=== PATIENT | female | born 1980 | race Hispanic/Latino ===

== ENCOUNTER 2020-06-05 10:38 | Emergency (ER) | payer MEDICAID, OTHER ==
[~2020-06-05 10:38] MED LIST: METH250T3 PO
[2020-06-05] MEDS ORDERED: ONDANSETRON ODT 4 MG TAB PO ONE (10:39)
[2020-06-05 12:00] LABS: RAPID GROUP A STREP NEGATIVE (NEGATIVE)
[2020-06-05 12:38] LABS: BILIRUBIN,URINE SMALL (NEGATIVE); GLUCOSE, URINE (UA) NEGATIVE (NEGATIVE); KETONES,URINE NEGATIVE (NEGATIVE); LEUKOCYTE ESTERASE ,URINE NEGATIVE (NEGATIVE); NITRATE,URINE NEGATIVE (NEGATIVE); OCCULT BLOOD,URINE LARGE (NEGATIVE); PH,URINE 6.5 (5.0-8.0); PROTEIN,URINE 100 mg/dL (NEGATIVE); UROBILINOGEN,URINE 0.2 mg/dL (0.2-1.0)
[2020-06-05 12:39] LABS: APPEARANCE,URINE TURBID (CLEAR); COLOR,URINE RED (YELLOW)
[2020-06-05 12:41] LABS: HCG,QUAL RESULT NEGATIVE (NEGATIVE)
[2020-06-05] MEDS ORDERED: ACETAMINOPHEN-CODEINE 300/30MG TAB ONE (12:42)
[2020-06-05 12:52] LABS: BASOPHILS % (AUTO) 0.1 % (0.0-5.0); EOSINOPHILS % (AUTO) 0.5 % (0.0-8.0); HEMATOCRIT 37.2 % (36-48); LYMPHOCYTES % (AUTO) 10.1 % (21.0-51.0); MEAN CORPUSCULAR HEMOGLOBIN 28.6 pg (27.0-33.0); MEAN CORPUSCULAR HGB CONC 33.6 g/dL (32.0-36.0); MEAN CORPUSCULAR VOLUME 85.1 fL (79-99); NEUTROPHILS % (AUTO) 82.9 % (40.0-77.0); PLATELET COUNT (AUTO) 181 K/uL (130-400); RED BLOOD CELL COUNT(AUTO) 4.37 MIL/uL (4.00-5.50); RED CELL DISTRIBUTION WIDTH 13.3 % (11.0-15.5); WHITE BLOOD COUNT (AUTO) 14.3 K/uL (4.8-10.8)
[2020-06-05 12:53] LABS: RBC,URINE TNTC /HPF (0-1)
[2020-06-05 12:56] LABS: BACTERIA,URINE Rare /HPF (None Seen); SQUAMOUS EPITHELIAL CELL,UR Rare /HPF (0-2)
[2020-06-05 13:04] LABS: ALBUMIN 3.3 g/dL (3.5-5.0); BILIRUBIN,TOTAL 0.8 mg/dL (0.2-1.0); CREATININE 0.9 mg/dL (0.5-1.5); TOTAL PROTEIN, SERUM 6.9 g/dL (6.0-8.3)
[2020-06-05] MEDS ORDERED: POTASSIUM CHLORIDE 10% ELIXIR 20 MEQ/15 ML UDCUP ONE (13:23)
== END 2020-06-05 14:32 | disposition home or self-care (01) ==
LOC: EDH 10:38
DX: B34.9 Viral infection, unspecified (principal); E87.6 Hypokalemia; E86.0 Dehydration; I10 Essential (primary) hypertension; Z20.828 Contact with and (suspected) exposure to other viral communicable diseases
CPT/HCPCS: 36415; 80053; 81001; 81025; 83690; 84702; 85025; 87088; 87426; 87804 ×2; 87880; 99284; U0003

== ENCOUNTER 2025-04-27 07:59 | Emergency (ER) | payer BC, OTHER ==
[~2025-04-27] VITALS: Ht 149.9 cm; Wt 106.6 kg
--- NOTE | 2025-04-27 08:13 | ERN ---
General Chief Complaint: Flu Symptoms Stated Complaint: COUGH Time Seen by MD: 08:03 Source: patient History of Present Illness Initial Comments Patient is a 45-year-old female coming in complaining of a cough. Per patient she has had earaches nasal congestion cough for three days. No shortness of breath. Allergies: Coded Allergies: No Known Drug Allergies (Unverified Allergy, Unknown, 11/05/16) Home Meds Reported Medications Methyldopa (Methyldopa) 250 Mg Tablet, 250 MG PO BID, TAB 11/05/16 Past Medical History Past Medical History: Diabetes-Type II, Hypertension Past Surgical History: None ROS Dictation CONSTITUTIONAL: No chills, no fever, no weakness, no diaphoresis, no malaise. HEAD/FACE: No signs of trauma. EENT: No eye pain, no blurred vision, no tearing, no double vision, ear pain, no ear discharge, no nose pain, nasal congestion, no throat pain, no throat swelling, no mouth pain. RESPIRATORY: cough, no orthopnea, no SOB, no stridor, no wheezing. CARDIOVASCULAR: No chest pain, no edema, no palpitations, no syncope. GASTROINTESTINAL/ABDOMINAL: No abdominal pain, no constipation, no diarrhea, no nausea, no vomiting. GENITOURINARY: No abnormal discharge, no dysuria, no frequent urination, no hematuria. No complaints of pain in the genitals. MUSCULOSKELETAL: No back pain, no gout, no joint pain, no joint swelling, no muscle pain, no muscle stiffness, no neck pain. INTEGUMENTARY: No change in color, no change in hair/nails, no dryness, no lesion, no lumps, no rash. NEUROLOGICAL/PSYCH: No anxiety, not depressed, no emotional problem, no headache, no numbness, no pre-existing deficit, no history of seizures, no tremors, no weakness. HEMATOLOGIC/LYMPHATIC: Not anemic, no history of blood clots, no apparent bleeding, no bruising, glands not swollen. All Systems Negative, Except as Noted. Physical Exam Physical Exam Dictation VITAL SIGNS: Reviewed. GENERAL APPEARANCE: Alert, oriented x3, no acute distress, obese. HEAD AND FACE: Non-traumatic. EYES: PERRL, pink conjunctivas, eyelid no trauma, anterior chamber clear. EARS: Pinnas intact and no signs of trauma or erythema. Ear canals bilateral cerumen impaction. TMs no erythema. NOSE: No discharge, no bleeding. OROPHARYNX: Mouth normal, teeth no caries, tongue pink. Pharynx clear, no erythema. Tonsils no exudates, no abscesses noted. Mucous membrane moist. NECK: Supple, non-tender, no thyromegaly, no masses, no JVD, no bruits. BREAST: Deferred. CHEST: No tenderness, no crepitus, no paradoxical movement, no retractions. LUNGS: Clear, well-ventilated, symmetric, no rales, no wheezing, no rhonchi, no stridor, good breath sounds bilaterally. HEART: Regular rate, regular rhythm, no murmur, no gallops. VASCULAR: No peripheral edema. ABDOMEN: Soft, positive bowel sounds, nondistended, no guarding, nontender, no rebound, no masses no hepatomegaly, no splenomegaly, no Luna's sign, no hernias. RECTAL: Deferred. GENITAL: Deferred. NEUROLOGICAL: Normal speech, gross motor function intact, gross sensory function intact. MUSCULOSKELETAL: Neck nontender, full range of motion, back nontender, full range of motion. EXTREMITIES: Nontender, full range of motion. SKIN: Color pink, dry, no turgor, no rash, no lacerations, no abrasions, no contusions. LYMPHATICS: Deferred. Results Laboratory and Microbiology Lab and Micro Result Laboratory Tests Test 04/27/25 08:00 04/27/25 08:15 Influenza Type A Antigen Negative For Type A Influenza Type B Antigen Negative For Type B SARS-CoV-2 Antigen (Rapid) PRESUMPTIVE NEGATIVE Group A Streptococcus Rapid negative (NEGATIVE) Urine HCG, Qualitative NEGATIVE (NEGATIVE) Labs Reviewed?: Yes MDM MDM: Differential diagnosis: URI, sinusitis, COVID, flu Rationale: Tests considered and ordered secondary to shared decision making include: Previous outside records reviewed: Old ER visits. Risk of complication and/or morbidity or mortality of patient management: None Medications-Per medication reconciliation Need for hospitalization: Patient does not meet criteria for hospitalization. Need for emergency major/minor surgery: No Patient is a 45-year-old female coming in complaining of URI symptoms. Laboratory workup within normal limits. On physical exam there is nasal turbinate swelling and congestion the patient will be discharged in stable condition with diagnosis of sinusitis. Medication will be provided for symptomatic relief. Also advised the appropriate follow with PCP for ongoing management. ED Course Orders Procedure Category Date Status Time Covid19 (Sars Antigen LAB 04/27/25 Complete Rapid) 08:07 Influenza Type A & B, LAB 04/27/25 Complete Rapid 08:07 Rapid (Group A Strep) LAB 04/27/25 Complete 08:07 ,Urine Test LAB 04/27/25 Complete 08:10 Vital Signs Date Time Temp Pulse Resp B/P (MAP) Pulse Ox O2 Delivery O2 Flow Rate FiO2 04/27/25 08:01 98.1 106 20 174/97 99 Room Air 04/27/25 08:00 98.1 106 16 194/99 95 Room Air* 0 21 DX & DISP Disposition: Discharge Departure Impression: Primary Impression: Sinusitis Condition: Stable Scripts Loratadine (Loratadine) 10 Mg Tablet 1 TAB PO DAILY for allergy symptoms for 30 Days, #30 TAB 0 Refills Prov: SAROJ CAMACHO MD 04/27/25 Fluticasone Propionate (Flonase Nasal [place]) 50 Mcg/Actuation [place] 2 SPRAY NS DAILY, #16 GM 0 Refills Prov: SAROJ CAMACHO MD 04/27/25 Additional Instructions: FOLLOW-UP WITH PRIMARY CARE PROVIDER IN 1 TO 2 DAYS. TAKE MEDICATIONS DIRECTED HERE IN THE EMERGENCY ROOM. OKAY TO CONTINUE HOME MEDICATIONS UNLESS OTHERWISE DISCUSSED DURING YOUR VISIT IN THE EMERGENCY ROOM TODAY. RETURN TO YOUR NEAREST EMERGENCY ROOM IF SYMPTOMS WORSEN OR IF THERE IS NO IMPROVEMENT. CALL 911 IF YOU NEED IMMEDIATE ASSISTANCE. TAKE TYLENOL [id number] NEEDED AND IF NO CONTRAINDICATIONS ARE PRESENT. INCREASE ORAL HYDRATION. A WOUND CULTURE OR URINE CULTURE WAS ORDERED HERE IN THE EMERGENCY ROOM DEPARTMENT PLEASE FOLLOW-UP WITH PRIMARY CARE PROVIDER AND ADVISE THEM TO GET REPORTS FROM OUR FACILITY. IF YOU HAD ANY SUSANNAH WRAP/SPLINTS THAT WERE APPLIED HERE, PLEASE DO NOT REMOVE THEM UNTIL YOU SEE YOUR PRIMARY CARE OR SPECIALTY. Referrals: Referrals: SELF,REFERRAL (PCP) SAMEERA SOMMERS MD Time of Disposition: 08:55 SAROJ CAMACHO MD Apr 27, 2025 08:13
[2025-04-27 08:28] LABS: INFLUENZA TYPE A Negative For Type A (NEGATIVE); INFLUENZA TYPE B Negative For Type B (NEGATIVE)
[2025-04-27 08:33] LABS: RAPID GROUP A STREP negative (NEGATIVE)
[2025-04-27 08:42] LABS: COVID19 (SARS ANTIGEN RAPID) PRESUMPTIVE NEGATIVE (NEGATIVE)
[2025-04-27] MEDS ORDERED: FLUT16H NS (08:56)
[2025-04-27] MEDS ORDERED: LORA10TA7 PO (08:56)
--- NOTE | 2025-04-27 09:10 | NUR ---
PT LEFT PRIOR TO ADMINSTATING MEDICATION
[2025-04-27 09:11] VITALS: BP 185/96; PULSE 100; RESP 18; TEMP 98.5; O2SAT 96
== END 2025-04-27 09:10 | disposition home or self-care (01) ==
LOC: EDH 07:59
DX: J32.9 Chronic sinusitis, unspecified (principal); H61.23 Impacted cerumen, bilateral; E11.9 Type 2 diabetes mellitus without complications; I10 Essential (primary) hypertension; Z20.822 Contact with and (suspected) exposure to COVID-19
CPT/HCPCS: 81025; 87426; 87804; 87880; 99283